=== PATIENT | female | born 1985 | race Caucasian/White ===

== ENCOUNTER 2016-05-04 00:04 | Observation (INO) | payer OTHER | END 2016-05-04 02:20 | disposition home or self-care (01) | LOC: FLD 00:04 | PROVIDERS: ADMIT Obstetrics & Gynecology; ATTEND Obstetrics & Gynecology | DX: O47.1 False labor at or after 37 completed weeks of gestation (principal); Z3A.39 39 weeks gestation of pregnancy | CPT/HCPCS: 59025; G0378 ==

== ENCOUNTER 2016-05-04 10:47 | Inpatient (IN) | payer OTHER ==
[2016-05-04] MEDS ORDERED: MINERAL OIL 60 ML OIL TP PRN (11:09)
[2016-05-04] MEDS ORDERED: LR 1,000 ML IV PRN (11:09)
[2016-05-04] MEDS ORDERED: LIDOCAINE 1% 30 ML SDV SC PRN (11:09)
[2016-05-04] MEDS ORDERED: TERBUTALINE SULFATE 1 MG/ML VIAL IV PRN (11:09)
[2016-05-04] MEDS ORDERED: OXYTOCIN/RINGERS LACTATE 1,000 ML IV PRN (11:09)
[2016-05-04] MEDS ORDERED: EPSOM SALT 454 GM TP PRN (11:09)
[2016-05-04] MEDS ORDERED: AMMONIA AROMATIC 1 EACH AMP IH ONE (11:20)
[2016-05-04] MEDS ORDERED: OXYTOCIN 10 UNIT/ML VIAL ONE (11:20)
[2016-05-04] MEDS ORDERED: MISOPROSTOL 200 MCG TAB ONE (11:20)
[2016-05-04] MEDS ORDERED: TERBUTALINE SULFATE 1 MG/ML VIAL ONE (11:20)
[2016-05-04] MEDS ORDERED: LIDOCAINE 1% 30 ML SDV ONE (11:20)
[2016-05-04 11:30] LABS: % IMMATURE GRANULYOCYTES 0.7 % (0.0-1.1); ABSOLUTE IMMATURE GRANULOCYTES 0.13 10^3/uL (0.00-0.10); ADD DIFF? NO; ADD MORPH? NO; ADD SCAN? NO; ATYPICAL LYMPHOCYTE FLAG 0 (0-99); FRAGMENT RBC FLAG 0 (0-99); HEMATOCRIT 44.4 % (38.0-47.0); HEMOGLOBIN 15.5 g/dL (12.6-16.3); LEFT SHIFT FLG 10 (0-99); LIPEMIA HEMOLYSIS FLAG 90 (0-99); MEAN CELL HEMOGLOBIN 31.9 pg (27.9-34.1); MEAN CELL HEMOGLOBIN CONCENTR. 34.9 g/dL (32.4-36.7); MEAN CELL VOLUME 91.4 fL (81.5-99.8); MEAN PLATELET VOLUME 10.6 fL (8.7-11.7); PLATELET CLUMPS FLAG 0 (0-99); PLATELET COUNT 287 10^3/uL (150-400); RED BLOOD CELL COUNT 4.86 10^6/uL (4.18-5.33); RED CELL DISTRIBUTION WIDTH 12.6 % (11.5-15.2)
--- NOTE | 2016-05-04 12:12 | GHP ---
[f rep st] HISTORY AND PHYSICAL DATE OF ADMISSION: 05/04/2016 ADMITTING DIAGNOSES: 1. Intrauterine at 39 and 6/7 weeks. 2. Spontaneous rupture of membranes. 3. Active Labor HISTORY OF PRESENT ILLNESS: The patient is a 31-year-old 2, para 0-0-1- 0 at 39 and 6/7 weeks, with an estimated due date 05/05/2016 that is confirmed by a first-trimester ultrasound that was done with perinatology. The patient called our office this morning and was complaining of a gush of fluid at 0930 and "there is no doubt in her mind that her water broke." Fluid is clear. She is having contractions since yesterday and was seen on Labor and delivery during the night and found to be 2 cm dilated. Good movement noted. The patient is GBS negative. The patient has received good care here at [facility]. She presented as a transfer in her second-trimester at 14 weeks. course overall uncomplicated. 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 There is no evidence of AVM per MFM on scans in October 2015 and November 2015. Early genetic testing, both verify and trio screens , were negative. The patient did, late in her second-trimester, develop palpitations and had a normal EKG, 48 hour heart monitor and echo of the heart. Patient did have follow-up with a cigar head perforator. The patient was given both a Tdap and flu vaccine during her . OBSTETRIC/GYNECOLOGIC HISTORY: The patient is multiparous. She had a blighted ovum in April 2015, it was diagnosed at 8 weeks and was medically managed with Cytotec. She did end up having heavy bleeding day 40, and ultrasound did show a uterine AVM which was confirmed with MRI. She was about to undergo a uterine artery embolization, but stabilized and no blood transfusion was needed. Last menstrual period July 30, 2015. Age of menarche 13 years. Cycles are regular every 28 days. She bleeds for 6 or 7 days. Positive test August 26, 2015. The patient has a history of abnormal Pap smears. Had a colposcopy in 2007 and 2009 and normal, no treatment needed. Patient did have a negative Pap smear with this . Denies any exposure to STDs , and had negative GC and chlamydia cultures done in this as well. PAST MEDICAL HISTORY: Remarkable for AVM in 2016. PAST SURGICAL HISTORY: Laparoscopy in 2004. Colposcopies in 2007 and 2009. ALLERGIES: Sulfa - hives. MEDICATIONS: [id number] vitamins, DHA. FAMILY HISTORY: Mother has chronic hypertension and emphysema, as well as psychiatric disease. The patient's brother has trisomy 18. LABS: The patient is O-positive. Antibody negative. RPR nonreactive. Rubella immune. Hepatitis B surface antigen negative. HIV negative. The first -trimester sequential screen was negative. Verify is negative. Pap, gonorrhea and chlamydia cultures all negative. One hour Glucola was normal at 96. Third- trimester H and H was 13 and 38.1. GBS is negative. PHYSICAL EXAM: Vital signs are stable, afebrile. GENERAL APPEARANCE: Well- nourished, well-developed female, alert and oriented x3, in no apparent distress. HEART: Regular rate and rhythm. LUNGS: Clear to auscultation. ABDOMEN: Gravid, nondistended, nontender. EXTREMITIES: Reveal no calf tenderness or edema. PELVIC: The patient was found to be grossly ruptured and 6 cm dilated, 90% effaced, -1 station. heart is category 1 tracing. Positive accelerations. No decelerations. Moderate variability. She is having regular contractions every 3-5 minutes. ASSESSMENT AND PLAN: The patient is a 31-year-old 2, para 0-0-1-0 at 39 and 6/7 weeks, who presents with spontaneous rupture of membranes in active labor. Plan: 1. Admit for expected management. 2. GBS is negative, no prophylactic abx needed. 3. Reviewed plan, the patient would like to go as natural as possible. 4. Requesting nitrous. /[id number]/MODL MTDD
[2016-05-04] MEDS ORDERED: fentaNYL 2MCG/ML/BUP 0.1% RTU 100 ML BAG EP ONE (13:24)
[2016-05-04] MEDS ORDERED: PHENYLEPHRINE HCL 100 MCG/ML SYR ONE (13:24)
[2016-05-04] MEDS ORDERED: BUPIVACAINE 0.25% 30 ML SDV ONE (13:24)
[2016-05-04] MEDS ORDERED: PHENYLEPHRINE HCL 100 MCG/ML SYR IVP PRN (14:01)
[2016-05-04] MEDS ORDERED: ONDANSETRON 4 MG/2 ML VIAL IVP PRN (14:01)
[2016-05-04] MEDS ORDERED: NALOXONE HCL 0.4 MG/ML INJ IVP PRN (14:01)
[2016-05-04] MEDS ORDERED: METOCLOPRAMIDE 10 MG/2 ML VIAL IVP PRN (14:01)
[2016-05-04] MEDS ORDERED: LR 500 ML IV SCH (14:30)
[2016-05-04] MEDS ORDERED: fentaNYL 2MCG/ML/BUP 0.1% RTU 100 ML EP SCH (14:30)
--- NOTE | 2016-05-04 15:35 | OBPROG ---
OBG Progress Note Assessment/Plan: Assessment: 31 y/o at 39 6/7 wks with SROM Plan: Continue expectant management s/p epidural FHTs- Cat I tracing Anticipate 05/04/16 15:37 Subjective: Pt is feeling pressure and desires a cervical exam. Able to get some sleep. Objective: 05/04/16 11:10 Patient ABO/Rh O POSITIVE 05/04/16 11:10 - SVE Dilation (cm): 8 Effacement (%): 90 Station: +1 Current Contraction Pattern: Irregular FHR (bpm): 140 FHR Pattern Variability: Moderate FHR Category: 1 Membranes: SROM Amniotic Fluid Color: Clear ICD10 Worksheet Patient Problems: Problems Problem Status Diagnosed SROM (spontaneous rupture of membranes) Acute - ICD10 Problem Qualifiers (1) SROM (spontaneous rupture of membranes)
--- NOTE | 2016-05-04 17:50 | OBPROG ---
OBG Progress Note Assessment/Plan: Assessment: 31 y/o at 39 6/7 wks with SROM Plan: Continue expectant management s/p epidural FHTs- Cat II tracing with intermittent variable decels Will cont to closely monitor the strip Not much cervical change noted in 2 hours, will reassess and consider augmenting with Pitocin 05/04/16 17:47 Subjective: Pt has no complaints at this time. Objective: 05/04/16 11:10 Patient ABO/Rh O POSITIVE 05/04/16 11:10 - SVE Dilation (cm): 9 Effacement (%): 90 Station: +1 (per RN) Current Contraction Pattern: Irregular FHR (bpm): 150 FHR Pattern Variability: Moderate FHR Category: 2 Membranes: SROM Amniotic Fluid Color: Clear ICD10 Worksheet Patient Problems: Problems Problem Status Diagnosed SROM (spontaneous rupture of membranes) Acute - ICD10 Problem Qualifiers (1) SROM (spontaneous rupture of membranes)
[2016-05-04] MEDS ORDERED: LR 500 ML IV PRN (19:25)
[2016-05-04] MEDS ORDERED: OXYTOCIN/RINGERS LACTATE 500 ML IV SCH (19:30)
--- NOTE | 2016-05-04 19:32 | OBPROG ---
OBG Progress Note Assessment/Plan: Assessment: 31 y/o at 39 6/7 wks with SROM Plan: No cervical change noted in the last 4 hrs, will augment with Pitocin s/p epidural - pt is starting to feel pain with her ctx's, will notify Anesthesiology FHTs- Cat I tracing Will Reassess in 2 hrs 05/04/16 19:29 Subjective: Pt is c/o pain with her ctx's in lower abdomen, pain 5-6/10. Objective: 05/04/16 11:10 Patient ABO/Rh O POSITIVE 05/04/16 11:10 - SVE Dilation (cm): 9 Effacement (%): 100 Station: +1 Current Contraction Pattern: Irregular FHR (bpm): 150 FHR Pattern Variability: Moderate FHR Category: 1 Membranes: SROM Amniotic Fluid Color: Clear ICD10 Worksheet Patient Problems: Problems Problem Status Diagnosed SROM (spontaneous rupture of membranes) Acute - ICD10 Problem Qualifiers (1) SROM (spontaneous rupture of membranes)
[2016-05-04] MEDS ORDERED: HYDROCORTISONE 0.5% CREAM TP PRN (23:07)
[2016-05-04] MEDS ORDERED: SIMETHICONE 80 MG TAB CHEW PO PRN (23:07)
[2016-05-04] MEDS: IBUPROFEN 600 MG TAB PO PRN (23:11)
--- NOTE | 2016-05-04 23:12 | OBPROC ---
- Labor and Delivery Onset of Contractions Date: 05/03/16 Onset of Contractions Type: Spontaneous Rupture of Membranes Date: 05/04/16 Rupture of Membranes Time: 09:30 Rupture of Membranes Type: Spontaneous Amniotic Fluid Color: Clear Dilation Complete Time: 21:30 Delivery Type: Spontaneous Placenta Delivery Date: 05/04/16 Placenta Delivery Time: 22:45 Episiotomy/Laceration: 2nd Degree Repair: 3-0, Vicryl EBL: 300cc Complications: Nuchal Cord (loose, slipped over perineum) - Medications Labor Augmentation/Induction Meds Used: None Anesthesia: Epidural - Info Infant A Delivery Date: 05/04/16 Delivery Time: 22:38 Sex of : Male (Curt) Score (1 Min): 8 Score (5 Min): 8
[2016-05-05] MEDS: HYDROCODONE/APAP 5/325 TAB PO PRN ×4 (02:06→21:38)
[2016-05-05] MEDS: IBUPROFEN 600 MG TAB PO PRN ×4 (05:17→23:07)
[2016-05-05] MEDS: DOCUSATE SODIUM 100 MG CAP PO PRN (08:59)
--- NOTE | 2016-05-05 19:56 | SOAPPROG ---
SOAP Progress Note Assessment/Plan: Assessment: PPD 1 s/p Plan: routine care 05/05/16 19:54 Subjective: Pt doing great. Sore bottom and taking Gray and ibu for comfort. urinated several times. bleeding is condemnation engineer. baby has been latching - much better after some fluids suctioned out. Nipples not sore Objective: Vital Signs Temp Pulse Resp BP Pulse Ox 36.4 C 68 16 115/76 96 05/05/16 08:00 05/05/16 08:00 05/05/16 08:00 05/05/16 08:00 05/05/16 08:00 Laboratory Results 05/04/16 11:10 05/04/16 05/05/16 05/06/16 05:59 05:59 05:59 Intake Total 3100 Output Total 1100 Balance 2000 Physical Exam - Physical Exam General Appearance: WD/WN Abdomen: non-tender, soft, other (FF at umb -1) Pelvic Exam: vaginal bleeding (normal lochia) Extremities: non-tender, pedal edema (minimal) Neuro/Psych: normal mood/affect ICD10 Worksheet Patient Problems: Problems Problem Status Diagnosed SROM (spontaneous rupture of membranes) Acute
[2016-05-06] MEDS: IBUPROFEN 600 MG TAB PO PRN ×4 (05:09→22:41)
[2016-05-06 08:31] VITALS: O2SAT 96
[2016-05-06] MEDS: HYDROCODONE/APAP 5/325 TAB PO PRN (09:03)
[2016-05-06] MEDS: DOCUSATE SODIUM 100 MG CAP PO PRN ×2 (09:04→17:02)
--- NOTE | 2016-05-06 09:12 | OBPROG ---
OBG Progress Note Assessment/Plan: Assessment: 31 y/o PPD #1.5 s/p doing well. Plan: Continue Ibuprofen and [place] prn, sitz baths and will start stool protocol today. support and will d/c home tomorrow. 05/06/16 09:12 Subjective: Pt is doing well today. She has some perineal pain controlled with Ibuprofen and [place]. No n/v, dada reg diet. Ambulating and voiding well and baby is working on nursing. She has not had a BM yet. Objective: 05/04/16 11:10 Patient ABO/Rh O POSITIVE 05/04/16 11:10 Temp Pulse Resp BP Pulse Ox 36.1 C 61 16 114/74 96 05/06/16 08:10 05/06/16 08:10 05/06/16 08:10 05/06/16 08:10 05/06/16 08:10 Uterine Position/Fundal Height: Umbilicus -2 Uterine Tone: Firm - Physical Exam General Appearance: WD/WN, alert, no apparent distress Neck: non-tender, full range of motion, supple Respiratory: chest non-tender, lungs clear, normal breath sounds Cardiac/Chest: regular rate, rhythm Abdomen: normal bowel sounds Extremities: swelling (no), Doroteo's sign (neg) ICD10 Worksheet Patient Problems: Problems Problem Status Diagnosed SROM (spontaneous rupture of membranes) Acute
[2016-05-06] MEDS ORDERED: BISACODYL 10 MG SUPP PR PRN (09:14)
[2016-05-06] MEDS ORDERED: MAGNESIUM HYDROXIDE 30 ML UDCUP PO PRN (09:14)
[2016-05-06] MEDS ORDERED: LACTULOSE 20 GM/30 ML UDCUP PO PRN (09:14)
[2016-05-06] MEDS ORDERED: POLYETHYLENE GLYCOL 3350 17 GM PKT PO PRN (09:14)
[2016-05-06] MEDS: SENNOSIDES/DOCUSATE SODIUM TAB PO SCH (22:40)
[2016-05-07] MEDS: IBUPROFEN 600 MG TAB PO PRN ×2 (05:39→11:00)
[2016-05-07 09:40] VITALS: BP 135/77; PULSE 58; RESP 17; TEMP 97.6
[2016-05-07] MEDS: SENNOSIDES/DOCUSATE SODIUM TAB PO SCH (10:59)
[2016-05-07] MEDS: HYDROCODONE/APAP 5/325 TAB PO PRN ×2 (11:00→15:12)
--- NOTE | 2016-05-07 12:28 | OBPROG ---
OBG Progress Note Assessment/Plan: Assessment: 31 y/o PPD #2 s/p doing well. Plan: D/c to border today and give Rx Ibuprofen, [place] and APNO. Follow-up @ [facility] 6 weeks, call for fever, heavy bleeding or other concerns. 05/06/16 09:12 05/07/16 12:27 Subjective: Pt is doing well today. She is feeling better with less perineal pain taking Ibuprofen and occasional [place]. Her bleeding is light and she is ambulating and voiding well. Her milk is starting to come in and baby is latching better. She does have some nipple soreness and hasn't had a BM yet. Baby had his circumcision today and has elevated bili. Supervisor [employer] plans to keep baby under lights today and d/c home tomorrow. She will stay as a border. Objective: 05/04/16 11:10 Patient ABO/Rh O POSITIVE 05/04/16 11:10 Temp Pulse Resp BP Pulse Ox 36.4 C 58 L 17 135/77 H 96 05/07/16 09:39 05/07/16 09:39 05/07/16 09:39 05/07/16 09:39 05/07/16 09:39 Uterine Position/Fundal Height: Umbilicus -2 Uterine Tone: Firm - Physical Exam General Appearance: WD/WN, alert, no apparent distress Neck: non-tender, full range of motion, supple Respiratory: chest non-tender, lungs clear, normal breath sounds Cardiac/Chest: regular rate, rhythm Abdomen: normal bowel sounds Extremities: swelling (no), Doroteo's sign (neg) ICD10 Worksheet Patient Problems: Problems Problem Status Diagnosed SROM (spontaneous rupture of membranes) Acute Spontaneous vaginal delivery Acute
== END 2016-05-07 03:15 | disposition home or self-care (01) | DRG 775 ==
LOC: FLD 10:47 → FOB 05-05 01:28
PROVIDERS: ADMIT Obstetrics & Gynecology; ATTEND Obstetrics & Gynecology
PROC: 10E0XZZ Delivery of Products of Conception, External Approach (ICD-10-PCS; principal; 2016-05-04)
PROC: 0KQM0ZZ Repair Perineum Muscle, Open Approach (ICD-10-PCS; principal; 2016-05-04)
DX: O70.1 Second degree perineal laceration during delivery (principal); O69.81X1 Labor and delivery complicated by cord around neck, without compression, fetus 1; Z37.0 Single live birth; Z3A.39 39 weeks gestation of pregnancy
CPT/HCPCS: J2370; J2590; J3105

== ENCOUNTER 2018-03-06 16:40 | Inpatient (IN) | payer OTHER ==
[2018-03-06] MEDS ORDERED: MISOPROSTOL 200 MCG TAB ONE (16:45)
[2018-03-06] MEDS ORDERED: AMMONIA AROMATIC 1 EACH AMP IH ONE (16:45)
[2018-03-06] MEDS ORDERED: OLIVE OIL 118 ML BTL ONE (16:45)
[2018-03-06] MEDS ORDERED: LIDOCAINE 1% 300 MG/30 ML SDV ONE (16:45)
[2018-03-06] MEDS ORDERED: OXYTOCIN 10 UNIT/ML VIAL ONE (16:45)
[2018-03-06] MEDS ORDERED: TERBUTALINE SULFATE 1 MG/ML VIAL ONE (16:45)
[2018-03-06] MEDS ORDERED: LR 1,000 ML IV PRN (16:56)
[2018-03-06] MEDS ORDERED: OXYTOCIN/RINGERS LACTATE 1,000 ML IV PRN (16:56)
[2018-03-06] MEDS ORDERED: EPSOM SALT 454 GM TP PRN (16:56)
[2018-03-06] MEDS ORDERED: IBUPROFEN 600 MG TAB PO PRN (16:56)
[2018-03-06] MEDS ORDERED: OLIVE OIL 118 ML BTL MISC PRN (16:56)
[2018-03-06] MEDS ORDERED: MISOPROSTOL 200 MCG TAB PR PRN (16:56)
[2018-03-06] MEDS ORDERED: TERBUTALINE SULFATE 1 MG/ML VIAL IV PRN (16:56)
[2018-03-06] MEDS ORDERED: LIDOCAINE 1% 300 MG/30 ML SDV SC PRN (16:56)
[2018-03-06 17:19] LABS: PLATELET COUNT 283 10^3/uL (150-400)
[2018-03-06] MEDS ORDERED: HYDROCORTISONE 0.5% CREAM TP PRN (17:52)
[2018-03-06] MEDS ORDERED: HYDROCODONE/APAP 5/325 TAB PO PRN (17:52)
[2018-03-06] MEDS ORDERED: SIMETHICONE 80 MG TAB CHEW PO PRN (17:52)
[2018-03-06] MEDS ORDERED: fentaNYL 100 MCG/2 ML INJ ONE (18:12)
[2018-03-06] MEDS: IBUPROFEN 600 MG TAB PO SCH (18:35)
--- NOTE | 2018-03-06 18:44 | PDGENHP ---
History and Physical History and Physical: CARE: [facility] HPI: Patient is a 32 yo G 3 P 1 at 39.6 weeks ega who presents to L&D with complaints of SROM clear fluid at 1550 and regular painful contractions that started earlier today. She reports good movement, denies vaginal bleeding. EDC: 03/07/18 which is based on LMP: 05/31/64 which is known and consistent with Ultrasound at 8 weeks ega. Her is complicated by: - h/o uterine AVM - not noted this per MFM consult/U/S - Parvo non-immune - Family h/o trisomy 18 (brother) - NIPT/NT normal Review of Systems: Constitutional: Denies any fever, chills, or fatigue HEENT: denies any visual changes, difficulty swallowing, hearing loss Cardiovascular: Denies any chest pain, palpitations, leg swelling Respiratory: denies any cough, wheezing, or shortness of breathe GI: Denies any nausea, vomiting, diarrhea, constipation : denies any dysuria, urgency, frequency, vaginal bleeding Musculoskeletal: denies any muscle or bone pain Skin: denies any rashes Neuro: denies any headache, seizures, lightheadedness, dizziness, or loss of consciousness Psychiatric: denies any depression, anxiety, or SI/HI thoughts HISTORY: Previous OB history: 2017, blighted ovum 2016 Past medical history: endometriosis, colposcopy X2-(no path), Past surgical history: dx laparoscopy 2004 Social history: , social service agency director, no alcohol, tobacco or street drug use Medications: PNV, Allergies (list reaction): sulfa LABS: Rh: O pos ABS: Neg Rubella: Immune HbsAg: NR HIV: NR VDRL: NR 1hr: 87 GC: Neg Chlamydia: Neg Pap: Normal GBS: neg PHYSICAL EXAM: Constitutional: WN, A&Ox3 Skin: pink, warm and dry HEENT: normocephalic atraumatic, supple Heart: RRR, no murmur Chest: CTA-B Abdomen: Soft, nontender, gravid SVE: 9 cm on admission per RN Extremities: trace edema, negative getachew's sign Neuro: grossly normal Psych: normal affect assessment: Reassuring FHTs, baseline 140 +accels, no decels, moderate variability Contractions: toco q 3 min Assessment: 1) 32 yo G 3 P 1 with IUP@39.6 weeks ega 2) Active labor 3) GBS neg 4) Cat 1 FHR tracing Plan: 1) Admit to L&D 2) Anticipate imminent
--- NOTE | 2018-03-06 18:48 | OBGCSDC ---
General Delivery Information - General Info : 3 Para: 2 Abortions: 1 L&D Analgesia/Anesthesia Type: None Admission Date: 03/06/18 Labs: Patient ABO/Rh O POSITIVE 03/06/18 17:00 Hct 45.5 % (38.0-47.0) 03/06/18 17:00 - Hospital Course Intrapartum: 03/06/18 18:48 Vaginal - Delivery Provider Delivery Physician/CNM: Keli Jacobo - Diagnosis Labor: Spontaneous Rupture of Membranes Type: Spontaneous Amniotic Fluid Color: Clear Delivery Events: Post Hemorrhage, Other (Specify) (Initial ebl 150 cc, 30 min after delivery 460cc clots evacuated from vagina and lower uterine segment. Bleeding stable and uterus firm after clots evacuatated. ) [place] Data KAL: 03/07/18 Gestational Age: 39 week(s) and 6 day(s) [place] Delivery Date: 03/06/18 Delivery Time: 16:50 Sex of : Male Score (1 Min): 8 Score (5 Min): 9
--- NOTE | 2018-03-06 18:54 | OBDEL ---
Info Type: Vaginal Presentation at Delivery: Vertex L&D Analgesia/Anesthesia Type: None GBS+: No Intrapartum Medications: Generic Name Dose Route Start Last Admin Trade Name Juan PRN Reason Stop Dose Admin Ibuprofen 600 mg 03/06/18 23:52 03/06/18 18:35 Motrin PO 09/02/18 23:51 600 mg Q6H MIRTA Administration Indications for Delivery: Spontaneous Labor Vaginal Delivery - Delivery Provider Delivery Physician/CNM: Keli Jacobo - Labor and Delivery Onset of Contractions Date: 03/06/18 Onset of Contractions Time: 01:00 Onset of Contractions Type: Spontaneous Rupture of Membranes Date: 03/06/18 Rupture of Membranes Time: 15:00 Rupture of Membranes Type: Spontaneous Amniotic Fluid Color: Clear Dilation Complete Date: 03/06/18 Dilation Complete Time: 16:40 Placenta Delivery Date: 03/06/18 Placenta Delivery Time: 16:57 Total Hours of Labor: 15 Vaginal Sponge Count Correct: Yes Vaginal Needle Count Correct: Yes Vaginal Sweep Performed: Yes EBL: 600 Delivery Events: Post Hemorrhage (Intial ebl 150cc, was having continued bleeding approximatedly 30 min after procedure although fundus firm- 450 cc clots evacuated from vagina and cervix which stabilized bleeding - fundus firm/ U2 after clots evactuated) Data KAL: 03/07/18 Gestational Age: 39 week(s) and 6 day(s) [place] Delivery Date: 03/06/18 Delivery Time: 16:50 Sex of Infant: Male Score (1 Min): 8 Score (5 Min): 9 ICD10 Worksheet Patient Problems: Problems Problem Status Onset SROM (spontaneous rupture of membranes) Acute Spontaneous vaginal delivery Acute
[2018-03-06] MEDS: ACETAMINOPHEN 325 MG TAB PO SCH (22:46)
[2018-03-07] MEDS: IBUPROFEN 600 MG TAB PO SCH ×4 (00:09→18:23)
[2018-03-07] MEDS: ACETAMINOPHEN 325 MG TAB PO SCH ×6 (04:44→23:01)
[2018-03-07] MEDS ORDERED: fentaNYL 100 MCG/2 ML INJ IVP ONE (06:27)
[2018-03-07] MEDS: DOCUSATE SODIUM 100 MG CAP PO PRN ×2 (08:36→20:40)
--- NOTE | 2018-03-07 13:49 | OBPP ---
Progress Note Assessment/Plan: Assessment: [id number] s/p PPD#1 baby in NICU Plan: routine PP Care plan d/c to board[place] tomorrow support PRN ambulate/hydrate 03/07/18 15:56 Subjective/ Course: 03/07/18 15:53 Pt doing well, she is happy with her fast experience. She denies any pain. reports minimal bleeding. She is - baby in NICU, on abx and O2 but overall doing well/improving. Objective: 03/07/18 04:50 Patient ABO/Rh O POSITIVE 03/06/18 17:00 Temp Pulse Resp BP Pulse Ox 35.9 C L 78 17 107/71 93 03/07/18 08:00 03/07/18 08:00 03/07/18 08:00 03/07/18 08:00 03/07/18 08:00 Uterine Position/Fundal Height: Umbilicus -1, Midline Uterine Tone: Firm
[2018-03-08] MEDS: IBUPROFEN 600 MG TAB PO SCH ×4 (01:31→15:02)
[2018-03-08] MEDS: ACETAMINOPHEN 325 MG TAB PO SCH ×3 (04:55→18:40)
[2018-03-08 08:18] VITALS: BP 123/84
[2018-03-08] MEDS: DOCUSATE SODIUM 100 MG CAP PO PRN (08:19)
--- NOTE | 2018-03-08 10:02 | OBGCSDC ---
General Delivery Information - General Info : 3 Para: 1 Abortions: 1 Type: Vaginal L&D Analgesia/Anesthesia Type: None Admission Date: 03/06/18 Labs: Patient ABO/Rh O POSITIVE 03/06/18 17:00 Hct 37.2 % (38.0-47.0) L 03/07/18 04:50 - Hospital Course : 03/07/18 15:53 Pt doing well, she is happy with her fast experience. She denies any pain. reports minimal bleeding. She is - baby in NICU, on abx and O2 but overall doing well/improving. 03/08/18 10:00 S) Pt doing well, reports min pain and bleeding. she is ambulating and voiding without difficulty. She is . O) VSS, afebrile constitutional: WNF, A&Ox3 HEENT: normocephalic, atraumatic, supple Heart: RRR, No murmur Chest: CTA-B Breasts: soft, nontender, not engorged, nipples Abdomen: Soft, nontender Uterus: Firm at U-3 Lochia: Minimal rubra Perineum: Intact, healing well Extremities: Trace edema, and negative Doroteo's sign Neuro: Grossly normal A) 32-year-old S/P PPD#2 Baby in NICU P) Discharge to board[place] today Continue Pelvic rest x6wks Discussed danger signs (infection, preeclampsia, depression, heavy bleeding, etc ) RTO in 2/4/6 weeks 03/08/18 10:02 Vaginal - Delivery Provider Delivery Physician/CNM: Keli Jacobo - Diagnosis Labor: Spontaneous Rupture of Membranes Type: Spontaneous Amniotic Fluid Color: Clear Delivery Events: Post Hemorrhage (Intial ebl 150cc, was having continued bleeding approximatedly 30 min after procedure although fundus firm- 450 cc clots evacuated from vagina and cervix which stabilized bleeding - fundus firm/ U2 after clots evactuated) - Delivery EBL: 600 Data KAL: 03/07/18 Gestational Age: 40 week(s) and 1 day(s) [place] Delivery Date: 03/06/18 Delivery Time: 16:50 Sex of Infant: Male [place] Weight (gm): 3458 kg Score (1 Min): 8 Score (5 Min): 9 Discharge Information - Discharge Information Prescriptions: Ibuprofen [Motrin (*)] 600 mg PO Q6H #30 tab Condition: Good
== END 2018-03-08 18:40 | disposition home or self-care (01) | DRG 768 ==
LOC: FLD 16:40 → FOB 19:38
PROVIDERS: ADMIT Advanced Practice Midwife; ATTEND Advanced Practice Midwife
PROC: 10E0XZZ Delivery of Products of Conception, External Approach (ICD-10-PCS; principal; 2018-03-06)
PROC: 0UCC7ZZ Extirpation of Matter from Cervix, Via Natural or Artificial Opening (ICD-10-PCS; principal; 2018-03-06)
DX: O72.1 Other immediate postpartum hemorrhage (principal); Z37.0 Single live birth; Z3A.39 39 weeks gestation of pregnancy
CPT/HCPCS: J2590; J3010; J3105